=== PATIENT | male | born 2000 | race Caucasian/White ===

== ENCOUNTER 2020-02-09 03:55 | Emergency (ER) | payer OTHER ==
[~2020-02-09] VITALS: Ht 162.6 cm; Wt 68.0 kg
--- NOTE | 2020-02-09 03:55 | NUR ---
PT BIB [facility], PREBOOK. TAKEN TO CHAIR ADoreen
[2020-02-09 04:00] VITALS: BP 121/66
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
[2020-02-09 04:07] VITALS: BP 121/66
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
--- NOTE | 2020-02-09 04:30 | NUR ---
Dr. Fleming examining patient.
--- NOTE | 2020-02-09 04:42 | NUR ---
patient discharged to [facility] custody with officer valerio Glez [id number]. s.
== END 2020-02-09 04:42 ==
LOC: MED 03:55
DX: Z04.1 Encounter for examination and observation following transport accident (principal); Z02.89 Encounter for other administrative examinations
CPT/HCPCS: 99283